=== PATIENT | female | born 1955 | race Caucasian/White ===

== ENCOUNTER 2022-12-24 08:18 | Emergency (ER) | payer BC, OTHER ==
[2022-12-24] MEDS ORDERED: TOPIRAMATE 25 MG TAB PO ONE (10:00)
--- NOTE | 2022-12-24 10:24 | EDPHYS ---
Physician Documentation [facility] Name: Micheline Valero Age: 67 yrs Sex: Female : 1955 Arrival Date: 12/24/2022 Time: 08:18 Bed 5 Private MD: ED Physician Luis Antonio Ivy HPI: 12/24 10:40 This 67 yrs old Female presents to ER via Ambulatory with complaints of High Blood snw Pressure. 10:40 The patient has elevated blood pressure and discovered this Pt with long history of snw HTN. Takes Lisinopril and Metoprolol. Pt did not take her metoprolol today yet as she eats breakfast prior to taking. Pt came to ED today with hx of "episodes". The HTN and episodes are of long standing and have been worked up through cardiology and neurology. Pt is alert, oriented, and calm in triage. Discussed episodes of "strong, pungent smell" followed by palpitations and nausea. These episodes happen between 9 and 90 times a day. . Onset: The symptoms/episode began/occurred acutely. Severity of symptoms: At its worst the blood pressure was 184 mm Hg, in the emergency department the blood pressure is unchanged, pt has not taken her Metoprolol today. The patient has experienced similar episodes in the past, chronically. zoom visit with Neurology 48 hours ago. Historical: - Allergies: 08:37 No Known Allergies; ll1 - PMHx: 08:37 Hypertensive disorder; ll1 - PSHx: 08:37 hysterectomy; L ear plastic SX; ll1 - Immunization history:: Adult Immunizations up to date. - Social history:: Smoking status: Patient denies any tobacco usage or history of. 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 Eyes: Negative for injury, pain, redness, and discharge, ENT: Negative for injury, pain, and discharge, Neck: Negative for injury, pain, and swelling, Cardiovascular: Negative for chest pain, palpitations, and edema, Respiratory: Negative for shortness of breath, cough, wheezing, and pleuritic chest pain, Abdomen/GI: Negative for abdominal pain, nausea, vomiting, diarrhea, and constipation, Back: Negative for injury and pain, : Negative for injury, bleeding, discharge, and swelling, MS/Extremity: Negative for injury and deformity, Skin: Negative for injury, rash, and discoloration, Neuro: Negative for headache, weakness, numbness, tingling, and seizure, Psych: Negative for depression, anxiety, suicide ideation, homicidal ideation, and hallucinations, Exam: 10:40 Constitutional: This is a well developed, well nourished patient who is awake, alert, snw and in no acute distress. Head/Face: Normocephalic, atraumatic. Eyes: Pupils equal round and reactive to light, extra-ocular motions intact. Lids and lashes normal. Conjunctiva and sclera are non-icteric and not injected. Cornea within normal limits. Periorbital areas with no swelling, redness, or edema. ENT: Nares patent. No nasal discharge, no septal abnormalities noted. Tympanic membranes are normal and external auditory canals are clear. Oropharynx with no redness, swelling, or masses, exudates, or evidence of obstruction, uvula midline. Mucous membranes moist. Neck: Trachea midline, no thyromegaly or masses palpated, and no cervical lymphadenopathy. Supple, full range of motion without nuchal rigidity, or vertebral point tenderness. No Meningismus. Chest/axilla: Normal chest wall appearance and motion. Nontender with no deformity. No lesions are appreciated. Cardiovascular: Regular rate and rhythm with a normal S1 and S2. No gallops, murmurs, or rubs. Normal PMI, no JVD. No pulse deficits. Respiratory: Lungs have equal breath sounds bilaterally, clear to auscultation and percussion. No rales, rhonchi or wheezes noted. No increased work of breathing, no retractions or nasal flaring. Abdomen/GI: Soft, non-tender, with normal bowel sounds. No distension or tympany. No guarding or rebound. No evidence of tenderness throughout. Back: No spinal tenderness. No costovertebral tenderness. Full range of motion. Skin: Warm, dry with normal turgor. Normal color with no rashes, no lesions, and no evidence of cellulitis. MS/ Extremity: Pulses equal, no cyanosis. Neurovascular intact. Full, normal range of motion. Neuro: Awake and alert, GCS 15, oriented to person, place, time, and situation. Cranial nerves II-XII grossly intact. Motor strength 5/5 in all extremities. Sensory grossly intact. Cerebellar exam normal. Normal gait. Psych: Awake, alert, with orientation to person, place and time. Behavior, mood, and affect are within normal limits. Vital Signs: 08:35 BP 215 / 91; Pulse 74; Resp 16; Temp 98.6; Pulse Ox 100% ; Weight 56.7 kg; Height 5 ft. ll1 2 in. ; Pain 0/10; 09:46 BP 182 / 107; Pulse 62; Resp 16 S; Pulse Ox 100% on R/A; kc6 10:09 BP 184 / 70; Pulse 64; Resp 17 S; Pulse Ox 99% on R/A; kc6 08:35 Body Mass Index 22.86 (56.70 kg, 157.48 cm) ll1 08:35 Pain Scale: Adult ll1 MDM: 08:36 Patient medically screened. snw 10:40 Differential diagnosis: anxiety, essential hypertension, noncompliance with snw medications. Data interpreted: Pulse oximetry: on room air is 99 %. Interpretation: normal. Data reviewed: vital signs, nurses notes, EKG. I considered the following discharge prescriptions or medication management in the emergency department Medications were administered in the Emergency Department. See MAR. Counseling: I had a detailed discussion with the patient and/or guardian regarding the historical points, exam findings, and any diagnostic results supporting the discharge/admit diagnosis, the presence of at least one elevated blood pressure reading (>120/80) during this emergency department visit, the need for outpatient follow up, for definitive care, to return to the emergency department if symptoms worsen or persist or if there are any questions or concerns that arise at home. Special discussion: Based on the history and exam findings, there is no indication for further emergent testing or inpatient evaluation. I discussed with the patient/guardian the need to see the primary care provider for further evaluation of the symptoms. ED course: pt alert and oriented, ambulatory to triage, smiling, to ED #5, ambulated with me to hallway bathroom, no dizziness, no complaints, no weakness. Pt was ambulatory back to ED #5.. 12/24 10:07 Order name: Recheck B/P; Complete Time: 10:13 snw EC:00 Rate is 62 beats/min. Rhythm is regular. QRS [place] is Normal. SD interval is normal. snw Clinical impression: NSR w/ Non-specific ST/T Changes. Administered Medications: 09:27 Drug: Topamax PO 50 mg PO once Route: PO; kc6 10:13 Follow up: Response: No adverse reaction kc6 Disposition Summary: 12/24/22 10:23 Discharge Ordered Notes: Location: Home snw Condition: Stable snw Diagnosis - Disorders of vagus nerve snw Followup: snw - With: Emergency Department - When: As needed - Reason: Worsening of condition Followup: snw - With: Private Physician - When: 2 - 3 days - Reason: Recheck today's complaints, Continuance of care, Re-evaluation by your physician Discharge Instructions: - Discharge Summary Sheet snw - Postural Orthostatic Tachycardia Syndrome snw - Vagus Nerve Stimulation Device Placement snw Forms: - Work release form snw - Medication Reconciliation Form snw - Thank You Letter snw - Antibiotic Education snw - Prescription Opioid Use snw - Patient Portal Instructions snw - Leadership Thank You Letter snw Signatures: Anette Rankin FNP-C REGIONAL MERCHANDISING MANAGER-Csnw Silvestre Faust, RN RN ll1 Leah Bhatti RN RN kc6
--- NOTE | 2022-12-24 10:24 | ER ---
Nurse's Notes [facility] Name: Micheline Valero Age: 67 yrs Sex: Female : 1955 Arrival Date: 12/24/2022 Time: 08:18 Bed 5 Private MD: Diagnosis: Disorders of vagus nerve Presentation: 12/24 08:35 Chief complaint: Patient states: HTN for at least 2 days. States she had "another ll1 spell" this morning so she came to get checked. Coronavirus screen: Vaccine status: Patient reports receiving the 2nd dose of the covid vaccine. Client denies travel out of the [place] in the last 14 days. At this time, the client does not indicate any symptoms associated with coronavirus-19. Ebola Screen: Patient denies travel to an Ebola-affected area in the 21 days before illness onset. Initial Sepsis Screen: Does the patient meet any 2 criteria? No. Patient's initial sepsis screen is negative. Does the patient have a suspected source of infection? No. Patient's initial sepsis screen is negative. Risk Assessment: Do you want to hurt yourself or someone else? Patient reports no desire to harm self or others. Onset of symptoms was December 23, 2022. 08:35 Method Of Arrival: Ambulatory ll1 08:35 Acuity: CORDEL[place] 2 ll1 Historical: - Allergies: 08:37 No Known Allergies; ll1 - PMHx: 08:37 Hypertensive disorder; ll1 - PSHx: 08:37 hysterectomy; L ear plastic SX; ll1 - Immunization history:: Adult Immunizations up to date. - Social history:: Smoking status: Patient denies any tobacco usage or history of. Screenin:12 [facility] ED Fall Risk Assessment (Adult) History of falling in the last 3 months, kc6 including since admission No falls in past 3 months (0 pts) Confusion or Disorientation No (0 pts) Intoxicated or Sedated No (0 pts) Impaired Gait No (0 pts) Mobility Assist Device Used No (0 pt) Altered Elimination No (0 pt) Score/Fall Risk Level 0 - 2 = Low Risk. Abuse screen: Denies threats or abuse. Denies injuries from another. Nutritional screening: No deficits noted. Tuberculosis screening: No symptoms or risk factors identified. Assessment: 08:45 General: Appears in no apparent distress. comfortable, Behavior is calm, cooperative, kc6 appropriate for age. Pain: Denies pain. Neuro: Level of Consciousness is awake, alert, obeys commands, Oriented to person, place, time, situation, Appropriate for age. Cardiovascular: Denies chest pain, Capillary refill < 3 seconds. Respiratory: Airway is patent Trachea midline Respiratory effort is even, unlabored, Respiratory pattern is regular, symmetrical, Denies shortness of breath. GI: No signs and/or symptoms were reported involving the gastrointestinal system. : No signs and/or symptoms were reported regarding the genitourinary system. EENT: No signs and/or symptoms were reported regarding the EENT system. Derm: No signs and/or symptoms reported regarding the dermatologic system. Skin is intact, is healthy with good turgor, Skin is pink, warm \\T\\ dry. Musculoskeletal: No signs and/or symptoms reported regarding the musculoskeletal system. Circulation, motion, and sensation intact. Capillary refill < 3 seconds, Range of motion: intact in all extremities. 09:45 Reassessment: Patient appears in no apparent distress at this time. No changes from kc6 previously documented assessment. Patient and/or family updated on plan of care and expected duration. Pain level reassessed. Patient is alert, oriented x 3, equal unlabored respirations, skin warm/dry/pink. Vital Signs: 08:35 BP 215 / 91; Pulse 74; Resp 16; Temp 98.6; Pulse Ox 100% ; Weight 56.7 kg; Height 5 ft. ll1 2 in. ; Pain 0/10; 09:46 BP 182 / 107; Pulse 62; Resp 16 S; Pulse Ox 100% on R/A; kc6 10:09 BP 184 / 70; Pulse 64; Resp 17 S; Pulse Ox 99% on R/A; kc6 08:35 Body Mass Index 22.86 (56.70 kg, 157.48 cm) ll1 08:35 Pain Scale: Adult ll1 ED Course: 08:22 Patient arrived in ED. mr 08:22 Anette Rankin FNP-C is PHCP. snw 08:22 Luis Antonio Ivy MD is Attending Physician. snw 08:37 Triage completed. ll1 08:40 Arm band placed on Patient placed in an exam room, on a stretcher. ll1 09:12 Leah Bhatti, RN is Primary Nurse. kc6 09:12 Patient has correct armband on for positive identification. Placed in gown. Bed in low kc6 position. Call light in reach. Side rails up X 1. Client placed on continuous cardiac and pulse oximetry monitoring. NIBP monitoring applied. management trainer on. 09:12 Inserted saline lock: 20 gauge in left antecubital area, using aseptic technique. Blood kc6 collected. Patient maintains SpO2 saturation greater than 95% on room air. 10:47 No provider procedures requiring assistance completed. IV discontinued, intact, kc6 bleeding controlled, No redness/swelling at site. Pressure dressing applied. Administered Medications: :27 Drug: Topamax PO 50 mg PO once Route: PO; kc6 10:13 Follow up: Response: No adverse reaction kc6 Medication: :47 VIS not applicable for this client. kc6 Outcome: :23 Discharge ordered by . jamaal 10:47 Discharged to home ambulatory, kc6 10:47 Condition: stable 10:47 Discharge instructions given to patient, Instructed on discharge instructions, follow up and referral plans. Demonstrated understanding of instructions, follow-up care, 10:47 Patient left the ED. kc6 Signatures: Anette Rankin, RECYCLING WORKER-C RECYCLING WORKER-Csnw Merline Mcdaniel, Reg Reg mr Silvestre Faust, RN RN ll1 Leah Bhatti, COMPA RN kc6
[2022-12-24 16:31] VITALS: BP 184/70; TEMP 98.6; O2SAT 99
--- NOTE | 2022-12-25 15:48 | EKG ---
Test Date: 2022-12-24 Test Time: 08:59:28 Director Of Enterprise Architecture: KYLE MEASUREMENT RESULTS: Intervals: Rate: 62 NH: 134 QRSD: 70 QT: 400 QTc: 406 [place]: P: 63 NH: 134 QRS: 62 T: 49 INTERPRETIVE STATEMENTS: Normal sinus rhythm Nonspecific ST abnormality Abnormal ECG No previous ECG available for comparison Electronically Signed On 12-25-22 15:43:40 CDT by Roberto Carlos Patiño
== END 2022-12-24 10:47 | disposition home or self-care (01) ==
LOC: ER 08:18
DX: G52.2 Disorders of vagus nerve (principal); I10 Essential (primary) hypertension
CPT/HCPCS: 93005; 99285